=== PATIENT | female | born 1975 | race African-American/Black ===

== ENCOUNTER 2016-03-04 20:50 | Emergency (ER) | payer BC ==
[2016-03-04 21:01] VITALS: BP 142/88
--- NOTE | 2016-03-04 21:07 | ER Document Report ---
Addendum entered and electronically signed by ERIBERTO BERNSTEIN NP 03/04/16 21:36 : ED Medical Screen (RME) - General Chief Complaint: Cold Symptoms Stated Complaint: FEVER Mode of Arrival: Ambulatory Notes: I greeted and performed a rapid initial assessment of this patient. Comprehensive ED assessment and evaluation of the patient, analysis of test results and completion of the medical decision making process will be conducted by additional ED providers. TRAVEL OUTSIDE OF THE [place] IN LAST 30 DAYS: No - Related Data Allergies/Adverse Reactions: morphine [Morphine] Adverse Reaction (Verified 09/28/15 12:57) "feels funny" Original Note: ED Medical Screen (RME) - General Stated Complaint: FEVER Mode of Arrival: Ambulatory Information source: Patient Notes: Patient presents to the emergency department with fever for 2 days with chills weakness with body aches, sore throat, carvalho, diarrhea. Last took motrin 1630. tylenol at 1900. Pt called sally FISHER. told if she felt worse to come in. Pt received flu vaccine. Denies abdominal pain, reports little cough, feels SOB. TRAVEL OUTSIDE OF THE [place] IN LAST 30 DAYS: No - Related Data Allergies/Adverse Reactions: morphine [Morphine] Adverse Reaction (Verified 09/28/15 12:57) "feels funny" Past Medical History - Immunizations Hx Diphtheria, Pertussis, Tetanus Vaccination: Yes Physical Exam - Vital signs Vitals: Temp Pulse Resp BP Pulse Ox 98.3 F 94 20 142/88 H 99 03/04/16 21:00 03/04/16 21:00 03/04/16 21:00 03/04/16 21:00 03/04/16 21:00 Course - Vital Signs Vital signs: Temp Pulse Resp BP Pulse Ox 98.3 F 94 20 142/88 H 99 03/04/16 21:00 03/04/16 21:00 03/04/16 21:00 03/04/16 21:00 03/04/16 21:00
== END 2016-03-04 23:45 | disposition left against medical advice (07) ==
LOC: ER 20:50
DX: Z53.9 Procedure and treatment not carried out, unspecified reason (principal); R50.9 Fever, unspecified
CPT/HCPCS: 71020; 99281

== ENCOUNTER 2016-06-24 13:16 | Emergency (ER) | payer BC ==
--- NOTE | 2016-06-24 13:54 | ER Document Report ---
ED Medical Screen (RME) - General Chief Complaint: General Weakness Stated Complaint: ABDOMINAL PAIN Notes: Patient presents with a multitude of vague, nonspecific complaints including headache, abdominal pain, dizziness, generalized weakness. She is overall well in appearance on initial evaluation without any acute distress. Nothing improves or worsens her symptoms. She has not seen her primary care doctor regarding today's concerns. She is 2 weeks late for her last menstrual period. I have greeted and performed a rapid initial assessment of this patient. A comprehensive ED assessment and evaluation of the patient, analysis of test results and completion of medical decision making process will be conducted by an additional ED providers. TRAVEL OUTSIDE OF THE [place] IN LAST 30 DAYS: No - Related Data Allergies/Adverse Reactions: morphine [Morphine] Adverse Reaction (Verified 09/28/15 12:57) "feels funny" Past Medical History - Social History Chew tobacco use (# tins/day): No Frequency of alcohol use: None Drug Abuse: None Renal/ Medical History: Denies: Hx Peritoneal Dialysis Surgical Hx: Negative - Immunizations Hx Diphtheria, Pertussis, Tetanus Vaccination: Yes Physical Exam - Vital signs Vitals: Resp 16 06/24/16 13:45 Notes: PHYSICAL EXAMINATION: GENERAL: Well-appearing, well-nourished and in no acute distress. HEAD: Atraumatic, normocephalic. EYES: Pupils equal round and reactive to light, extraocular movements intact, sclera anicteric, conjunctiva are normal. ENT: nares patent, oropharynx clear without exudates. Moist mucous membranes. NECK: Normal range of motion, supple without lymphadenopathy LUNGS: Breath sounds clear to auscultation bilaterally and equal. No wheezes rales or rhonchi. HEART: Regular rate and rhythm without murmurs EXTREMITIES: Normal range of motion, no pitting or edema. No cyanosis. NEUROLOGICAL: No focal neurological deficits. Moves all extremities spontaneously and on command. PSYCH: Normal mood, normal affect. SKIN: Warm, Dry, normal turgor, no rashes or lesions noted. Course - Vital Signs Vital signs: Temp Pulse Resp BP Pulse Ox 16 06/24/16 13:45
[2016-06-24 14:19] LABS: ABSOLUTE BASOPHILS # (AUTO) 0.1 10^3/uL (0.0-0.2); ABSOLUTE EOSINOPHILS # (AUTO) 0.1 10^3/uL (0.0-0.6); ABSOLUTE LYMPHOCYTES (AUTO) 2.6 10^3/uL (0.5-4.7); ABSOLUTE MONOCYTES (AUTO) 0.5 10^3/uL (0.1-1.4); BASOPHILS % (AUTO) 0.7 % (0-2); EOSINOPHILS % (AUTO) 1.7 % (0-6); HEMATOCRIT 33.6 % (36.0-47.0); HEMOGLOBIN 10.4 g/dL (12.0-15.5); HGB HCT DIFFERENCE -2.4; LYMPHOCYTES % (AUTO) 31.5 % (13-45); MEAN CORPUSCULAR HEMOGLOBIN 20.9 pg (27.0-33.4); MEAN CORPUSCULAR HGB CONC 30.9 g/dL (32.0-36.0); MEAN CORPUSCULAR VOLUME 68 fl (80-97); MONOCYTES % (AUTO) 5.5 % (3-13); RED BLOOD COUNT 4.97 10^6/uL (3.72-5.28); RED CELL DISTRIBUTION WIDTH 18.5 % (11.5-14.0); SEGMENTED NEUTROPHILS % (AUTO) 60.6 % (42-78); WHITE BLOOD COUNT 8.2 10^3/uL (4.0-10.5)
[2016-06-24 14:37] LABS: ALANINE AMINOTRANSFERASE 15 U/L (9-52); ALBUMIN 3.9 g/dL (3.5-5.0); ALKALINE PHOSPHATASE 63 U/L (38-126); ANION GAP 13 (5-19); ASPARTATE AMINO TRANSFERASE 18 U/L (14-36); BILIRUBIN,DIRECT 0.2 mg/dL (0.0-0.4); BILIRUBIN,TOTAL 0.5 mg/dL (0.2-1.3); BLOOD UREA NITROGEN 11 mg/dL (7-20); CALCIUM 9.4 mg/dL (8.4-10.2); CARBON DIOXIDE 26 mmol/L (22-30); CHLORIDE 103 mmol/L (98-107); CREATININE RESULT 0.76 mg/dL (0.52-1.25); GLUCOSE 113 mg/dL (75-110); LIPASE 87.5 U/L (23-300); POTASSIUM 3.9 mmol/L (3.6-5.0); SODIUM 142.1 mmol/L (137-145); TOTAL PROTEIN 7.6 g/dL (6.3-8.2)
--- NOTE | 2016-06-24 14:48 | ER Document Report ---
ED General - General Chief Complaint: General Weakness Stated Complaint: ABDOMINAL PAIN Mode of Arrival: Ambulatory Information source: Patient Notes: Patient presents to the emergency department with complaints of left upper quadrant abdominal pain that started 3 days ago. Patient denies trauma, fever vomiting diarrhea. Patient reports that the pain started 3 days ago with some nausea. Patient denies past medical history of chronic abdominal issues such as IBS Crohn's diverticulitis. Patient denies pain with void or urinary frequency. Patient reports last bowel movement was yesterday and was normal. Patient reports that she also became dizzy today while she was walking. She reports the dizziness will go away when she laid down. She denies abdominal pain at this time. TRAVEL OUTSIDE OF THE [place] IN LAST 30 DAYS: No - HPI Onset: Other - 3 days Onset/Duration: Waxing and waning Quality of pain: Cramping Severity: Moderate Pain Level: 3 Associated symptoms: None Exacerbated by: Denies Relieved by: Denies Similar symptoms previously: Yes Recently seen / treated by doctor: No - Related Data Allergies/Adverse Reactions: morphine [Morphine] Adverse Reaction (Verified 09/28/15 12:57) "feels funny" Past Medical History - General Information source: Patient Last Menstrual Period: 05/05/16 - Social History Smoking Status: Never Smoker Chew tobacco use (# tins/day): No Frequency of alcohol use: None Drug Abuse: None 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 Lives with: Family Family History: Reviewed & Not Pertinent Patient has suicidal ideation: No Patient has homicidal ideation: No - Medical History Medical History: Other - Anemia Renal/ Medical History: Denies: Hx Peritoneal Dialysis Surgical Hx: Negative - Immunizations Hx Diphtheria, Pertussis, Tetanus Vaccination: Yes Hx Pneumococcal Vaccination: 02/20/10 Review of Systems - Review of Systems Notes: Review HPI for review of systems., All other systems negative Physical Exam - Vital signs Vitals: Temp Pulse Resp BP Pulse Ox 98.5 F 93 16 135/76 H 98 06/24/16 13:20 06/24/16 13:20 06/24/16 13:20 06/24/16 13:20 06/24/16 13:20 - Notes Notes: PHYSICAL EXAMINATION: GENERAL: Well-appearing and in no acute distress Nontoxic looking HEAD: Atraumatic, normocephalic. EYES: Pupils equal round , extraocular movements intact, sclera anicteric, conjunctiva are normal. ENT: nares patent, Moist mucous membranes. NECK: Normal range of motion, supple without lymphadenopathy LUNGS: CTAB and equal. No wheezes rales or rhonchi. HEART: Regular rate and rhythm without murmurs ABDOMEN: Soft, no tenderness. No guarding, no rebound denies pain with palpation EXTREMITIES: Normal range of motion, no pitting edema. No cyanosis. NEUROLOGICAL: Cranial nerves grossly intact. Normal sensory/motor exams. PSYCH: Normal mood, normal affect. SKIN: Warm, Dry, normal turgor, no rashes or lesions noted Course - Re-evaluation Re-evalutation: 06/24/16 15:20 Patient instructed on EKG KUB. Patient declines pain medication reports her abdomen is not hurting at this time. 06/24/16 17:23 Issue reports she's feeling much better no longer has abdominal pain, denies dizziness 06/24/16 18:14 Labs unremarkable patient reports she is no longer having any abdominal pain denies dizziness Monday to go home. Patient was instructed on all labs KUB. Patient was instructed on importance of follow-up with Dr. Billy for recheck on Monday. She verbalized understanding to all instructions. The patient presents with abdominal pain without signs of peritonitis or other life threatening or serious etiology. The patient appears stable for discharge and has been instructed to return immediately if the symptoms worsen in any way or in 8-12 hours if not improved for reevaluation. The patient has been instructed to return if the symptoms worsen or change in any way. - Vital Signs Vital signs: Temp Pulse Resp BP Pulse Ox 97.8 F 85 18 124/79 100 06/24/16 18:50 06/24/16 18:50 06/24/16 18:50 06/24/16 18:50 06/24/16 18:50 - Laboratory Result Diagrams: 06/24/16 14:10 06/24/16 14:10 Laboratory results interpreted by me: 06/24/16 06/24/16 06/24/16 14:10 14:10 17:28 Hgb 10.4 L Hct 33.6 L MCV 68 L MCH 20.9 L MCHC 30.9 L RDW 18.5 H Glucose 113 H Urine Blood SMALL H Urine Urobilinogen 2.0 H - Diagnostic Test Radiology reviewed: Image reviewed, Reports reviewed - Clinical Info Memos Diagnostic report text EXAM DESCRIPTION: KUB/ABDOMEN (SINGLE VIEW) COMPLETED DATE/TIME: 06/24/2016 4:01 pm REASON FOR STUDY: abd pain COMPARISON : None. NUMBER OF VIEWS: One view. TECHNIQUE: Supine radiographic image of the abdomen acquired. LIMITATIONS: None. FINDINGS: BOWEL GAS PATTERN: Normal bowel gas pattern. No dilated loops. CALCIFICATIONS: Calcification is seen the left side of the pelvis suggesting calcified uterine fibroid. SOFT TISSUES: No gross mass or suggestion of organomegaly. HARDWARE: None in the abdomen. BONES: No acute fracture. No worrisome bone lesions. OTHER: No other significant finding. TECHNICAL DOCUMENTATION: JOB ID: [id number]- All Rights Reserved RAD/KUB /ABDOMEN (SINGLE VIEW) IMPRESSION: NO RADIOGRAPHIC EVIDENCE FOR ACUTE ABDOMINAL DISEASE - EKG Interpretation by Wy EKG shows normal: Sinus rhythm Discharge - Discharge Clinical Impression: Abdominal pain, Elevated blood pressure reading, Dizziness Condition: Stable Disposition: HOME, SELF-CARE Instructions: Abdominal Pain ([facility]), Dizziness ([facility]) Additional Instructions: *You have been evaluated for abdominal pain, dizziness, elevated blood pressure reading, history of anemia *Follow up with Dr. Billy within 5 days. *Return to ED for worsening condition, changes, needs, return of abdominal pain *Return to ED if not better in 24 hours Monitor your blood pressure. Your blood pressure was elevated today. This may be because you were anxious, in pain or because you need medication. It is important to follow up with your primary care provider for full evaluation. Forms: Elevated Blood Pressure, Return to Work Referrals: JOSY BILLY MD [Primary Care Provider] - Follow up as needed
[2016-06-24 17:58] LABS: APPEARANCE,URINE SLIGHTLY-CLOUDY; BILIRUBIN,URINE NEGATIVE (NEGATIVE); GLUCOSE, URINE NEGATIVE (NEGATIVE); KETONES,URINE NEGATIVE (NEGATIVE); LEUKOCYTE ESTERASE,URINE NEGATIVE (NEGATIVE); NITRITE,URINE NEGATIVE (NEGATIVE); PROTEIN,URINE NEGATIVE (NEGATIVE); URINE SPECIFIC GRAVITY 1.027
[2016-06-24 18:51] VITALS: BP 124/79
--- NOTE | 2016-06-24 19:08 | EKG REPORT ---
SEVERITY:- DEFECTIVE ECG - SINUS RHYTHM DEFECTIVE LEAD III : Confirmed by: Severiano Burks MD 24-Jun-2016 19:08:16
== END 2016-06-24 18:50 | disposition home or self-care (01) ==
LOC: ER 13:16
DX: R10.9 Unspecified abdominal pain (principal); R42 Dizziness and giddiness; R03.0 Elevated blood-pressure reading, without diagnosis of hypertension; R53.1 Weakness; Z88.6 Allergy status to analgesic agent
CPT/HCPCS: 36415; 74000; 80053; 81001; 83690; 84703; 85025; 93005; 93010; 99285

== ENCOUNTER → 2016-08-15 | Outpatient (CLI) | payer BC ==
[~2016-08-15] MED LIST: ACETAMINOPHEN 325 MG TABLET ONE; DIPHENHYDRAMINE HCL 25 MG CAPSULE ONE
--- NOTE | 2016-08-15 17:02 | RADIOLOGY REPORT (SQ) ---
EXAM DESCRIPTION: HYSTEROSALPINGOGRAM; HYSTERO CATH/INJECTION COMPLETED DATE/TIME: 08/15/2016 3:49 pm REASON FOR STUDY: INFERTILITY COMPARISON: None. PROCEDURE: PRE-PROCEDURE: Procedure was explained to the patient. She was told to expect cramping du ring the procedure, and possible spotting post procedure. PROCEDURE: The cervix was prepped in sterile fashion. Under direct visual inspection, the cervix was cannulated with the hysterosalpingogram catheter and contrast injected. TECHNIQUE: Temporal fluoroscopic images acquired during the procedure stored to PACS. FLUOROSCOPY TIME: Less than 3 seconds total fluoro time 25 digital radiographic images saved to PACS. LIMITATIONS: None. FINDINGS: UTERUS: Calcified uterine fibroid along the leftward lower uterine segment about 1.5 cm in diameter. There is flattening of the leftward uterine fundus endometrial canal related to a fibroid . This distorts the infundibular segment of the left proximal fallopian tube. No synechiae. No wendy ypoid filling defects in the endometrial canal. RIGHT ADNEXA: Normal size fallopian tube. Free spill of contrast into the peritoneal cavity. LEFT ADNEXA: Normal size fallopian tube. Free spill of contrast into the peritoneal cavity. POST PROCEDURE: The patient tolerated the procedure with no adverse effects. IMPRESSION: Patent fallopian tubes bilaterally. Leftward uterine fibroids. COMMENT: Quality ID 145: Final reports for procedures using fluoroscopy that document radiation exp osure indices, or exposure time and number of fluorographic images (if radiation exposure indices are not available) TECHNICAL DOCUMENTATION: JOB ID: [id number] [employer]- All Rights Reserved
== END ==
LOC: RAD 14:24
PROVIDERS: ATTEND Obstetrics & Gynecology Reproductive Endocrinology
DX: N92.5 Other specified irregular menstruation (principal)
CPT/HCPCS: 58340; 74740

== ENCOUNTER → 2016-08-28 | Outpatient (CLI) | payer BC | LOC: LAB 08:38 | PROVIDERS: ATTEND Obstetrics & Gynecology Reproductive Endocrinology | DX: N92.5 Other specified irregular menstruation (principal) | CPT/HCPCS: 36415; 83036; 83516; 84443 ==

== ENCOUNTER 2016-11-21 11:16 | Emergency (ER) | payer BC ==
--- NOTE | 2016-11-21 12:17 | ER Document Report ---
ED General - General Chief Complaint: Pain All Over Stated Complaint: FEVER Time Seen by Provider: 11/21/16 12:10 Mode of Arrival: Ambulatory Information source: Patient TRAVEL OUTSIDE OF THE [place] IN LAST 30 DAYS: No - HPI Onset: Last week Onset/Duration: Gradual Quality of pain: Achy, Dull Associated symptoms: Body/muscle aches, Diarrhea, Fever - INTERMITTENT, Headache , Nausea, Sinus pain/drainage, Sore throat. denies: Chest pain, Nonproductive cough, Productive cough, Vomiting Exacerbated by: Movement Relieved by: Remaining still Similar symptoms previously: No Recently seen / treated by doctor: No - Related Data Allergies/Adverse Reactions: morphine [Morphine] Adverse Reaction (Verified 11/21/16 11:19) "feels funny" Past Medical History - General Information source: Patient - Social History Smoking Status: Never Smoker Chew tobacco use (# tins/day): No Frequency of alcohol use: None Drug Abuse: None Lives with: Spouse/Significant other Family History: Reviewed & Not Pertinent Patient has suicidal ideation: No - Past Medical History Cardiac Medical History: Reports: None Pulmonary Medical History: Reports: None EENT Medical History: Reports: None Neurological Medical History: Reports: None Endocrine Medical History: Reports: None Renal/ Medical History: Reports: None. Denies: Hx Peritoneal Dialysis Malignancy Medical History: Reports: None GI Medical History: Reports: None Musculoskeltal Medical History: Reports None Psychiatric Medical History: Reports: None Surgical Hx: Negative - Immunizations Hx Diphtheria, Pertussis, Tetanus Vaccination: Yes Hx Pneumococcal Vaccination: 02/20/10 Review of Systems - Review of Systems Constitutional: See HPI EENT: See HPI, Sinus pressure, Throat pain Cardiovascular: No symptoms reported Respiratory: No symptoms reported. denies: Cough, Hurts to breathe, Short of breath Gastrointestinal: See HPI Genitourinary: No symptoms reported Female Genitourinary: denies: Musculoskeletal: See HPI Skin: No symptoms reported Neurological/Psychological: Headaches Physical Exam - Vital signs Vitals: Temp Pulse Resp BP Pulse Ox 99.2 F 94 16 149/82 H 99 11/21/16 11:20 11/21/16 11:20 11/21/16 11:20 11/21/16 11:20 11/21/16 11:20 Interpretation: Hypertensive. No: Tachycardic, Tachypneic, Febrile - General General appearance: Appears well, Alert In distress: None - HEENT Head: Normocephalic Eyes: Normal Conjunctiva: Normal Ears: Normal Sinus: Other - MILDLY TENDER MAXILLAE Nasal: Normal Mouth/Lips: Normal Mucous membranes: Normal Pharynx: Normal Neck: Normal - Respiratory Respiratory status: No respiratory distress Breath sounds: Normal - Cardiovascular Rhythm: Regular - Abdominal Inspection: Obese - Extremities General upper extremity: Normal inspection General lower extremity: Normal inspection - Neurological Neuro grossly intact: Yes Cognition: Normal Orientation: AAOx4 - Psychological Associated symptoms: Normal affect, Normal mood - Skin Skin Temperature: Warm Skin Moisture: Dry Skin Color: Normal Skin Turgor: Elastic Course - Vital Signs Vital signs: Temp Pulse Resp BP Pulse Ox 99.2 F 94 16 149/82 H 99 11/21/16 11:20 11/21/16 11:20 11/21/16 11:20 11/21/16 11:20 11/21/16 11:20 - Laboratory Result Diagrams: 11/21/16 12:55 11/21/16 12:55 Laboratory results interpreted by me: 11/21/16 11/21/16 11/21/16 12:55 12:55 13:00 Hgb 10.1 L Hct 31.0 L MCV 65 L MCH 21.0 L RDW 19.6 H ESR 47 H Glucose 74 L Urine Blood SMALL H Urine Urobilinogen 2.0 H Discharge - Discharge Clinical Impression: Viral illness Condition: Stable Disposition: HOME, SELF-CARE Instructions: Viral Syndrome ([facility]), Acetaminophen, Oral Narcotic Medication ( [facility]) Additional Instructions: REST, DRINK PLENTY OF FLUIDS. TAKE IBUPROFEN NEEDED FOR PAIN, OR HYDROCODONE IF NEEDED FOR MORE SEVERE PAIN. FOLLOW UP WITH YOUR PRIMARY CARE PROVIDER OR RETURN TO E.R. IF NOT IMPROVING IN 2-3 DAYS, OR SOONER IF YOU GET WORSE ANY TIME. Prescriptions: Hydrocodone/Acetaminophen [[place] 5-325 mg Tablet] 0.5 tab PO Q4HP PRN #7 tablet PRN Reason: For Pain Referrals: JOSY BILLY MD [Primary Care Provider] - Follow up as needed
[2016-11-21 13:16] LABS: BASOPHILS % (AUTO) 0.5 % (0-2); EOSINOPHILS % (AUTO) 1.8 % (0-6); HEMOGLOBIN 10.1 g/dL (12.0-15.5)
[2016-11-21 13:21] LABS: APPEARANCE,URINE CLEAR; BILIRUBIN,URINE NEGATIVE (NEGATIVE); GLUCOSE, URINE NEGATIVE (NEGATIVE); KETONES,URINE NEGATIVE (NEGATIVE); LEUKOCYTE ESTERASE,URINE NEGATIVE (NEGATIVE); NITRITE,URINE NEGATIVE (NEGATIVE); PROTEIN,URINE NEGATIVE (NEGATIVE); URINE SPECIFIC GRAVITY 1.013
[2016-11-21 13:26] LABS: ABSOLUTE EOSINOPHILS # (AUTO) 0.2 10^3/uL (0.0-0.6); ABSOLUTE LYMPHOCYTES (AUTO) 2.8 10^3/uL (0.5-4.7); ABSOLUTE MONOCYTES (AUTO) 0.6 10^3/uL (0.1-1.4); HGB HCT DIFFERENCE -0.7; LYMPHOCYTES % (AUTO) 32.2 % (13-45); MEAN CORPUSCULAR HGB CONC 32.5 g/dL (32.0-36.0); MEAN CORPUSCULAR VOLUME 65 fl (80-97); MONOCYTES % (AUTO) 6.9 % (3-13); RED BLOOD COUNT 4.79 10^6/uL (3.72-5.28); RED CELL DISTRIBUTION WIDTH 19.6 % (11.5-14.0); SEGMENTED NEUTROPHILS % (AUTO) 58.6 % (42-78); WHITE BLOOD COUNT 8.6 10^3/uL (4.0-10.5)
--- NOTE | 2016-11-21 13:29 | RADIOLOGY REPORT (SQ) ---
EXAM DESCRIPTION: CT FACIAL AREA WITHOUT COMPLETED DATE/TIME: 11/21/2016 1:21 pm REASON FOR STUDY: SINUS PAIN, FEVER COMPARISON: None. TECHNIQUE: Noncontrast scanning through the paranasal sinuses using bone algorithm. Reconstructed MPR images reviewed. All images stored on PACS. All CT scanners at this facility use dose modulation, iterative reconstruction, and/or weight based d osing when appropriate to reduce radiation dose to as low as reasonably achievable (ALARA). [facility]: Dose Right [facility]: CareDose [facility]: Dose Right [facility]: Teradose 4D [facility]: [employer] RADIATION DOSE: Up-to-date CT equipment and radiation dose reduction techniques were employed. CTDIv ol: 30.4 mGy. DLP: 559 mGy-cm. mGy. LIMITATIONS: None. FINDINGS: SINUSES: Clear, no masses, mucosal thickening or fluid. No erosions. NASAL CAVITY: Midline nasal septum. BONES: Normal mineralization. No fracture or bone lesion. ORBITS: Intact, symmetric globes. No retroorbital mass. TMJS: Normal. MASTOIDS: Clear. IACs symmetric, grossly normal. INFERIOR BRAIN: Limited view. No acute findings. OTHER: No other significant finding. IMPRESSION: NO EVIDENCE OF ACUTE OR CHRONIC SINUSITIS. TECHNICAL DOCUMENTATION: JOB ID: [id number] Quality ID # [id number]: Final reports with documentation of one or more dose reduction techniques (e.g., Au tomated exposure control, adjustment of the mA and/or kV according to patient size, use of iterative reconstruction technique) 2010 [employer]- All Rights Reserved
[2016-11-21 13:34] LABS: ALANINE AMINOTRANSFERASE 26 U/L (9-52); ALKALINE PHOSPHATASE 62 U/L (38-126); ANION GAP 10 (5-19); ASPARTATE AMINO TRANSFERASE 15 U/L (14-36); BILIRUBIN,DIRECT 0.3 mg/dL (0.0-0.4); BILIRUBIN,TOTAL 0.4 mg/dL (0.2-1.3); BLOOD UREA NITROGEN 13 mg/dL (7-20); CALCIUM 9.6 mg/dL (8.4-10.2); CARBON DIOXIDE 27 mmol/L (22-30); CHLORIDE 104 mmol/L (98-107); CREATININE RESULT 0.78 mg/dL (0.52-1.25); GLUCOSE 74 mg/dL (75-110); POTASSIUM 4.1 mmol/L (3.6-5.0); SODIUM 140.5 mmol/L (137-145); TOTAL PROTEIN 7.6 g/dL (6.3-8.2)
[2016-11-21 13:48] LABS: ERYTHROCYTE SEDIMENTATION RATE 47 mm/hr (0-20)
[2016-11-21 13:58] LABS: ANISOCYTOSIS 2+; HYPOCHROMASIA 1+; MICROCYTOSIS 3+; POLYCHROMASIA SLIGHT
[2016-11-21 14:36] VITALS: BP 133/73
== END 2016-11-21 14:36 | disposition home or self-care (01) ==
LOC: ER 11:16
DX: B34.9 Viral infection, unspecified (principal); M79.1 Myalgia; R19.7 Diarrhea, unspecified; R50.9 Fever, unspecified; R51 Headache; R11.0 Nausea; J02.9 Acute pharyngitis, unspecified; J34.89 Other specified disorders of nose and nasal sinuses
CPT/HCPCS: 36415; 70486; 80053; 81001; 85025; 85652; 99284

== ENCOUNTER → 2017-03-05 | Outpatient (CLI) | payer BC | LOC: LAB 15:48 | PROVIDERS: ATTEND Internal Medicine | DX: Z32.02 Encounter for pregnancy test, result negative (principal) | CPT/HCPCS: 36415; 84702; 84703 ==

== ENCOUNTER 2017-08-09 16:42 | Emergency (ER) | payer SELFPAY ==
[2017-08-09] MEDS ORDERED: HYDROMORPHONE HCL INJ/PF 2 MG/ML AMPULE IV ONE (17:02)
--- NOTE | 2017-08-09 17:03 | ER Document Report ---
ED Medical Screen (RME) - General Chief Complaint: Flank Pain Stated Complaint: SIDE PAIN, DIARRHEA Time Seen by Provider: 08/09/17 16:58 Notes: The patient is a 41-year-old female who presents with a few days of right flank pain is worse when she takes deep breaths or moves. She is also having some hematuria. Pain is not worse with palpation and she thinks it is deeper. Pt also with hematuria, but she recently started her period. PE: Uncomfortable. No CVA tenderness. Lungs CTAB. RRR. I have greeted and performed a rapid initial assessment of this patient. A comprehensive ED assessment and evaluation of the patient, analysis of test results and completion of the medical decision making process will be conducted by additional ED providers. TRAVEL OUTSIDE OF THE [place] IN LAST 30 DAYS: No - Related Data Allergies/Adverse Reactions: morphine [Morphine] Adverse Reaction (Verified 08/09/17 17:01) "feels funny" Past Medical History - Social History Chew tobacco use (# tins/day): No Frequency of alcohol use: None Drug Abuse: None Renal/ Medical History: Denies: Hx Peritoneal Dialysis - Immunizations Hx Diphtheria, Pertussis, Tetanus Vaccination: Yes Physical Exam - Vital signs Vitals: Temp Pulse Resp BP Pulse Ox 98.5 F 93 16 127/78 H 100 08/09/17 16:49 08/09/17 16:49 08/09/17 16:49 08/09/17 16:49 08/09/17 16:49 Course - Vital Signs Vital signs: Temp Pulse Resp BP Pulse Ox 98.5 F 93 16 127/78 H 100 08/09/17 16:49 08/09/17 16:49 08/09/17 16:49 08/09/17 16:49 08/09/17 16:49 Doctor's Discharge - Discharge Referrals: JOSY BILLY MD [Primary Care Provider] - Follow up as needed
[2017-08-09 18:11] LABS: APPEARANCE,URINE SLIGHTLY-CLOUDY; BILIRUBIN,URINE NEGATIVE (NEGATIVE); COLOR,URINE YELLOW; GLUCOSE, URINE NEGATIVE (NEGATIVE); KETONES,URINE NEGATIVE (NEGATIVE); LEUKOCYTE ESTERASE,URINE NEGATIVE (NEGATIVE); NITRITE,URINE NEGATIVE (NEGATIVE); PROTEIN,URINE 30 mg/dL (NEGATIVE); URINE SPECIFIC GRAVITY 1.027
[2017-08-09 18:20] LABS: ABSOLUTE EOSINOPHILS # (AUTO) 0.2 10^3/uL (0.0-0.6); ABSOLUTE LYMPHOCYTES (AUTO) 3.1 10^3/uL (0.5-4.7); ABSOLUTE MONOCYTES (AUTO) 0.8 10^3/uL (0.1-1.4); ABSOLUTE NEUT (AUTO) 6.3 10^3/uL (1.7-8.2); BASOPHILS % (AUTO) 0.5 % (0-2); EOSINOPHILS % (AUTO) 1.7 % (0-6); HEMATOCRIT 32.2 % (36.0-47.0); HEMOGLOBIN 10.4 g/dL (12.0-15.5); LYMPHOCYTES % (AUTO) 29.5 % (13-45); MEAN CORPUSCULAR HEMOGLOBIN 21.6 pg (27.0-33.4); MEAN CORPUSCULAR HGB CONC 32.4 g/dL (32.0-36.0); MEAN CORPUSCULAR VOLUME 67 fl (80-97); MONOCYTES % (AUTO) 7.4 % (3-13); PLATELET COUNT 320 10^3/uL (150-450); RED BLOOD COUNT 4.83 10^6/uL (3.72-5.28); RED CELL DISTRIBUTION WIDTH 19.5 % (11.5-14.0); SEGMENTED NEUTROPHILS % (AUTO) 60.9 % (42-78); TOTAL CELLS COUNTED % (AUTO) 100 %; WHITE BLOOD COUNT 10.4 10^3/uL (4.0-10.5)
[2017-08-09 18:27] LABS: ALANINE AMINOTRANSFERASE 20 U/L (9-52); ALBUMIN 4.2 g/dL (3.5-5.0); ALKALINE PHOSPHATASE 57 U/L (38-126); ANION GAP 11 (5-19); ASPARTATE AMINO TRANSFERASE 16 U/L (14-36); BILIRUBIN,DIRECT 0.3 mg/dL (0.0-0.4); BILIRUBIN,TOTAL 0.4 mg/dL (0.2-1.3); BLOOD UREA NITROGEN 11 mg/dL (7-20); CARBON DIOXIDE 25 mmol/L (22-30); CHLORIDE 106 mmol/L (98-107); GLUCOSE 89 mg/dL (75-110); LIPASE 94.1 U/L (23-300); POTASSIUM 4.4 mmol/L (3.6-5.0); SODIUM 142.1 mmol/L (137-145); TOTAL PROTEIN 7.9 g/dL (6.3-8.2)
--- NOTE | 2017-08-09 18:52 | RADIOLOGY REPORT (SQ) ---
EXAM DESCRIPTION: CT LTD RENAL STONE PROTOCOL ON COMPLETED DATE/TIME: 08/09/2017 6:34 pm REASON FOR STUDY: right flank pain, hematuria COMPARISON: None. TECHNIQUE: CT scan of the abdomen and pelvis performed without intravenous or oral contrast. Images reviewed with lung, soft tissue, and bone windows. Reconstructed coronal and sagittal MPR images revi ewed. All images stored on PACS. All CT scanners at this facility use dose modulation, iterative reconstruction, and/or weight based d osing when appropriate to reduce radiation dose to as low as reasonably achievable (ALARA). [facility]: Dose Right [facility]: CareDose [facility]: Dose Right [facility]: Teradose 4D [facility]: Smart [employer] RADIATION DOSE: CT Rad equipment meets quality standard of care and radiation dose reduction techniq ues were employed. CTDIvol: 27.0 mGy. DLP: 1528 mGy-cm.mGy. LIMITATIONS: None. FINDINGS: LOWER CHEST: Patchy airspace densities are identified which could represent atelectatic ch anges or minimal infiltrates. NON-CONTRASTED LIVER, SPLEEN, ADRENALS: Evaluation limited by lack of IV contrast. No identified sign ificant masses. PANCREAS: No masses. No peripancreatic inflammatory changes. GALLBLADDER: No identified stones by CT criteria. No inflammatory changes to suggest cholecystitis. RIGHT KIDNEY AND URETER: No suspicious masses. Assessment limited by lack of IV contrast. No signif icant calcifications. No hydronephrosis or hydroureter. LEFT KIDNEY AND URETER: No suspicious masses. Assessment limited by lack of IV contrast. No signifi cant calcifications. No hydronephrosis or hydroureter. AORTA AND RETROPERITONEUM: No aneurysm. No retroperitoneal masses or adenopathy. BOWEL AND PERITONEAL CAVITY: No obvious masses or inflammatory changes. No free fluid. APPENDIX: Not identified PELVIS, BLADDER, AND ABDOMINAL WALL:A complex predominately cystic mass containing calcifications is identified in the right adnexal region measuring 5.2 x 4.0 cm in diameters most consistent with a ezra moid. A complex mixed density mass is identified in the left adnexal region measuring 5.7 x 4.1 cm i n diameters which also is most consistent with a dermoid. There is enlargement of the uterus with lo bulated contours in uterine calcifications most consistent with an enlarged fibroid uterus. Pelvic u ltrasound or MRI of may be of value for further evaluation. BONES: No significant findings. OTHER: No other significant finding. IMPRESSION: Findings most consistent with bilateral adnexal dermoids as noted above. There is enlar gement of the uterus with a lobulated contours and uterine calcifications most consistent with an enl arged fibroid uterus. Pelvic ultrasound or MRI may be of value for further evaluation. Other findin gs as noted above COMMENT: Quality ID # 436: Final reports with documentation of one or more dose reduction techniques (e.g., Automated exposure control, adjustment of the mA and/or kV according to patient size, use of iterative reconstruction technique) TECHNICAL DOCUMENTATION: JOB ID: [id number] [employer]- All Rights Reserved Reading location - IP/workstation name: [email or web address]
--- NOTE | 2017-08-09 20:48 | RADIOLOGY REPORT (SQ) ---
EXAM DESCRIPTION: U/S NON OB PEL TV W/DOPPLER COMPLETED DATE/TIME: 08/09/2017 8:27 pm REASON FOR STUDY: further eval of dermoid cyst on ct COMPARISON: None. TECHNIQUE: Dynamic and static grayscale images acquired of the pelvis via transvaginal approach and recorded on PACS. Additional selected color Doppler and spectral images recorded. LIMITATIONS: Body habitus. FINDINGS: Technically limited study. Uterus measures 11.8 by 8.3 x 8.8 cm. Several fibroids, the l argest 3.9 cm. Endometrial stripe 5.5 mm. Ovaries are not visualized. No free fluid. IMPRESSION: Technically limited study. Pelvic cystic lesion not visualized. TECHNICAL DOCUMENTATION: JOB ID: [id number] [employer]- All Rights Reserved Rev Reading location - IP/workstation name: [email or web address]
[2017-08-09] MEDS ORDERED: ONDANSETRON 4 MG TAB.RAPDIS PO ONE (20:51)
[2017-08-09] MEDS ORDERED: ONDANSETRON ODT 4 MG TAB (6 TAB/ER DISP) PO PRN (22:10)
--- NOTE | 2017-08-09 22:10 | ER Document Report ---
ED General - General Chief Complaint: Flank Pain Stated Complaint: SIDE PAIN, DIARRHEA Time Seen by Provider: 08/09/17 16:58 TRAVEL OUTSIDE OF THE [place] IN LAST 30 DAYS: No - HPI Patient complains to provider of: Right flank pain Notes: Patient coming in for evaluation of right flank pain. Ongoing for greater than 24 hours. Patient states worse with taking a deep breath and some slight movement however is not tender to palpation. Patient states also having hematuria however may be beginning her cycle. Denies any trauma to the area denies fevers chills patient states that she is currently slightly nauseous however did receive Dilaudid in triage area. Patient states her pain has been relieved at this time patient is also very somnolent stating that she is sleepy after the medication. Denies history kidney stones denies any vaginal discharge or other abdominal pain denies any chest pain. No recent travel no shortness of breath - Related Data Allergies/Adverse Reactions: morphine [Morphine] Adverse Reaction (Verified 08/09/17 17:01) "feels funny" Past Medical History - Social History Smoking Status: Never Smoker Chew tobacco use (# tins/day): No Frequency of alcohol use: None Drug Abuse: None Family History: Reviewed & Not Pertinent Patient has suicidal ideation: No Patient has homicidal ideation: No Renal/ Medical History: Denies: Hx Peritoneal Dialysis - Immunizations Hx Diphtheria, Pertussis, Tetanus Vaccination: Yes Hx Pneumococcal Vaccination: 02/20/10 Review of Systems - Review of Systems Constitutional: No symptoms reported EENT: No symptoms reported Cardiovascular: No symptoms reported Respiratory: No symptoms reported Gastrointestinal: No symptoms reported Genitourinary: Flank pain Female Genitourinary: No symptoms reported Musculoskeletal: No symptoms reported Skin: No symptoms reported Hematologic/Lymphatic: No symptoms reported Neurological/Psychological: No symptoms reported -: Yes All other systems reviewed and negative Physical Exam - Vital signs Vitals: Temp Pulse Resp BP Pulse Ox 98.5 F 93 16 127/78 H 100 08/09/17 16:49 08/09/17 16:49 08/09/17 16:49 08/09/17 16:49 08/09/17 16:49 Interpretation: Normal - General General appearance: Appears well, Alert - HEENT Head: Normocephalic, Atraumatic Eyes: Normal Pupils: PERRL - Respiratory Respiratory status: No respiratory distress Chest status: Nontender Breath sounds: Normal Chest palpation: Normal - Cardiovascular Rhythm: Regular Heart sounds: Normal auscultation Murmur: No - Abdominal Inspection: Normal, Morbidly Obese Distension: No distension Bowel sounds: Normal Tenderness: Nontender Organomegaly: No organomegaly - Back Back: Normal, Nontender - Extremities General upper extremity: Normal inspection, Nontender, Normal color, Normal ROM , Normal temperature General lower extremity: Normal inspection, Nontender, Normal color, Normal ROM , Normal temperature, Normal weight bearing. No: Bart's sign - Neurological Neuro grossly intact: Yes Cognition: Normal Orientation: AAOx4 [place] Coma Scale Eye Opening: Spontaneous [place] Coma Scale Verbal: Oriented [place] Coma Scale Motor: Obeys Commands [place] Coma Scale Total: 15 Speech: Normal Motor strength normal: LUE, RUE, LLE, RLE Sensory: Normal - Psychological Associated symptoms: Normal affect, Normal mood - Skin Skin Temperature: Warm Skin Moisture: Dry Skin Color: Normal Course - Re-evaluation Re-evalutation: 08/09/17 23:11 CAT scan not revealing signs of stones but does reveal some dermoid cyst. Ultrasound was performed to further evaluate his dermoid cyst no critical etiology seen this time. Patient was encouraged to follow-up with her [facility] for further evaluation of the dermoid cyst seen the patient presents with flank pain without signs of peritonitis or other life-threatening or serious etiology. The patient appears stable for discharge and has been instructed to return immediately if the symptoms worsen in any way, or in 8-12hr if not improved for re-evaluation. The patient has been instructed to return if the symptoms worsen or change in any way. 08/09/17 23:12 - Vital Signs Vital signs: Temp Pulse Resp BP Pulse Ox 98.2 F 86 18 128/74 H 97 08/09/17 22:31 08/09/17 22:31 08/09/17 22:31 08/09/17 22:31 08/09/17 22:31 - Laboratory Result Diagrams: 08/09/17 17:50 08/09/17 17:50 Laboratory results interpreted by me: 08/09/17 08/09/17 17:23 17:50 Hgb 10.4 L Hct 32.2 L MCV 67 L MCH 21.6 L RDW 19.5 H Urine Protein 30 H Urine Blood LARGE H Urine Urobilinogen 4.0 H Urine Ascorbic Acid 40 H Discharge - Discharge Clinical Impression: Flank pain, Dermoid cyst, Nausea Fibroid uterus Qualifiers: Uterine leiomyoma location: unspecified location Qualified Code(s): D25.9 - Leiomyoma of uterus, unspecified Condition: Good Disposition: HOME, SELF-CARE Instructions: Flank Pain ([facility]), Nausea or Vomiting, Nonspecific ([facility]), Oral Narcotic Medication ([facility]) Additional Instructions: Laboratory studies today do not show any significant pathology your CT scan and ultrasound do show a dermoid cyst. This might be the possible etiology of the pain is everything else looks to be negative. I will highly recommend she follow-up with your [facility] for further evaluation. Return to ER symptoms worsen. Ultram prescribed is a narcotic pain medication take this for severe pain. I also recommend taking Motrin 600 mg along with Tylenol 650 mg to 1000 mg together 3 times a day for pain control Prescriptions: Ondansetron [Zofran Odt] 4 mg PO Q6 PRN #30 tab.rapdis PRN Reason: For Nausea/Vomiting Tramadol HCl [Ultram 50 mg Tablet] 50 mg PO ASDIR PRN #20 tablet PRN Reason: Referrals: JOSY BILLY MD [Primary Care Provider] - Follow up as needed
[2017-08-09 22:32] VITALS: BP 128/74
== END 2017-08-09 22:32 | disposition home or self-care (01) ==
LOC: ER 16:42
DX: D36.9 Benign neoplasm, unspecified site (principal); D25.9 Leiomyoma of uterus, unspecified; R10.9 Unspecified abdominal pain; R11.0 Nausea
CPT/HCPCS: 99284; 36415; 83690; 85025; 81025; 80053; 81001; 76830; 93976; 76380; S0119; J1170

== ENCOUNTER 2017-11-05 17:20 | Emergency (ER) | payer SELFPAY ==
[2017-11-05] MEDS ORDERED: IPRATROPIUM/ALBUTEROL 0.5-2.5 MG/3 ML AMPUL NEB ONE (19:12)
--- NOTE | 2017-11-05 20:17 | RADIOLOGY REPORT (SQ) ---
EXAM DESCRIPTION: CHEST 2 VIEWS COMPLETED DATE/TIME: 11/05/2017 8:02 pm REASON FOR STUDY: chest pain, fever, cough COMPARISON: 03/04/2016 EXAM PARAMETERS: NUMBER OF VIEWS: two views TECHNIQUE: Digital Frontal and Lateral radiographic views of the chest acquired. RADIATION DOSE: NA LIMITATIONS: none FINDINGS: LUNGS AND PLEURA: No opacities, masses or pneumothorax. No pleural effusion. MEDIASTINUM AND HILAR STRUCTURES: No masses or contour abnormalities. HEART AND VASCULAR STRUCTURES: Heart normal size. No evidence for failure. BONES: No acute findings. HARDWARE: None in the chest. OTHER: No other significant finding. IMPRESSION: NO ACUTE RADIOGRAPHIC FINDING IN THE CHEST. TECHNICAL DOCUMENTATION: JOB ID: [id number] [email or web address] All Rights Reserved Reading location - IP/workstation name: [email or web address]
[2017-11-05] MEDS ORDERED: ALBUTEROL SULFATE HFA (90 MCG/PUFF) 8 GM MDI (1 MDI/ER DISP) IH ONE ×2 (20:49→20:56)
--- NOTE | 2017-11-05 20:49 | ER Document Report ---
HPI - HPI Pain Level: Denies Notes: Patient is a 42-year-old female who presents to the emergency department with complaint of cough and fever. Patient reports she has a history of bronchitis and she feels that is what is causing her symptoms. Patient denies any chest pain. Patient denies any nausea, vomiting or diarrhea. - CONSTITUTIONAL Constitutional: REPORTS: Fever - up to 103.4 - EENT EENT: REPORTS: Sore Throat, Ear Pain - right - NEURO Neurology: REPORTS: Headache - RESPIRATORY Respiratory: REPORTS: Coughing - REPRODUCTIVE Reproductive: DENIES: : Past Medical History - General Information source: Patient - Social History Smoking Status: Never Smoker Frequency of alcohol use: None Drug Abuse: None Family History: Reviewed & Not Pertinent Patient has suicidal ideation: No Patient has homicidal ideation: No Pulmonary Medical History: Reports: Hx Bronchitis Renal/ Medical History: Denies: Hx Peritoneal Dialysis Surgical Hx: Negative - Immunizations Immunizations up to date: Yes Hx Diphtheria, Pertussis, Tetanus Vaccination: Yes Hx Pneumococcal Vaccination: 02/20/10 Vertical Provider Document - CONSTITUTIONAL Notes: PHYSICAL EXAMINATION: GENERAL: Well-appearing, well-nourished and in no acute distress. HEAD: Atraumatic, normocephalic. EYES: Pupils equal round extraocular movements intact, conjunctiva are normal. ENT: Nares patent NECK: Normal range of motion LUNGS: No respiratory distress, mild expiratory wheezing noted bilaterally. Musculoskeletal: Normal range of motion NEUROLOGICAL: Normal speech, normal gait. PSYCH: Normal mood, normal affect. SKIN: Warm, Dry, normal turgor, no rashes or lesions noted. - INFECTION CONTROL TRAVEL OUTSIDE OF THE [place] IN LAST 30 DAYS: No Course - Re-evaluation Re-evalutation: Patient's examination is consistent with acute bronchitis. Chest x-ray is negative for any acute findings. Patient reports resolved symptoms after administration of DuoNeb. - Vital Signs Vital signs: Temp Pulse Resp BP Pulse Ox 99.3 F 102 H 20 136/80 H 97 11/05/17 18:03 11/05/17 18:03 11/05/17 18:03 11/05/17 18:03 11/05/17 18:03 Discharge - Discharge Clinical Impression: Bronchitis Condition: Stable Disposition: HOME, SELF-CARE Additional Instructions: Bronchitis with Bronchospasm (Wheezing) You have bronchitis with bronchospasm (wheezing). Sometimes people develop wheezing with a chest cold. This occurs either because of an underlying tendency toward asthma or because the virus itself irritates the bronchial tubes. This irritation causes cough, shortness of breath, and wheezing. Emergency treatment of bronchospasm may include adrenaline shots or bronchodilator aerosol. You may feel lightheaded and have a rapid pulse for an hour or two. Rest and get plenty of fluids. At home, we'll treat you with a bronchodilator inhaler. Corticosteroids may be required for some patients. Until you recover, avoid chemical fumes, dusts, pollens, and exercising in very cold or dry air. If you smoke, stop now! Most cases of bronchitis get better without antibiotics. We prescribe antibiotics when we believe bacteria are damaging your airways, or if there's high risk the bronchitis will worsen into pneumonia. Increase your fluid intake. A cool mist humidifier may make your lungs more comfortable. An expectorant (cough medicine that loosens phlegm) can help. Repeated episodes of bronchitis and bronchospasm may result in lung damage -- for example, chronic bronchitis, recurrent pneumonias, or emphysema. If you develop a fever, increased wheezing, chest pain, or severe shortness of breath, you should contact the doctor immediately. Please use medication as prescribed. Take Tylenol every 4 hours for your fever. Please follow-up with your primary care doctor in the next 3-5 days, sooner if you are not improving. Prescriptions: Benzonatate [Tessalon Perles 100 mg Capsule] 100 mg PO Q8HP PRN #40 capsule PRN Reason: Referrals: JOSY BILLY MD [Primary Care Provider] - Follow up as needed
[2017-11-05] MEDS ORDERED: ACETAMINOPHEN 325 MG TABLET PO ONE (20:50)
[2017-11-05 20:52] VITALS: BP 140/79
[2017-11-05] MEDS ORDERED: ACETAMINOPHEN 325 MG TABLET ONE (20:56)
== END 2017-11-05 21:05 | disposition home or self-care (01) ==
LOC: ER 17:20
DX: J40 Bronchitis, not specified as acute or chronic (principal); R05 Cough; R50.9 Fever, unspecified; H92.01 Otalgia, right ear; J02.9 Acute pharyngitis, unspecified; R51 Headache
CPT/HCPCS: 94640; 99284; 71046; J3490; J7620

== ENCOUNTER 2019-02-01 16:25 | Emergency (ER) | payer OTHER ==
[2019-02-01] MEDS ORDERED: ONDANSETRON 4 MG TAB.RAPDIS PO ONE (18:04)
--- NOTE | 2019-02-01 18:05 | ER Document Report ---
ED Medical Screen (RME) - General Chief Complaint: Nausea Stated Complaint: RIGHT SIDE PAIN/NAUSEA Time Seen by Provider: 02/01/19 18:01 Primary Care Provider: JOSY BILLY MD [Primary Care Provider] - Follow up as needed Mode of Arrival: Ambulatory Information source: Patient Notes: Patient presents complaining of right lateral side pain off and on for the past 2 weeks. Patient states pain is presently gone. Patient does report nausea. No vomiting or diarrhea. No urinary symptoms. Patient does report fever today of 101. I have greeted and performed a rapid initial assessment of this patient. A comprehensive ED assessment and evaluation of the patient, analysis of test results and completion of the medical decision making process will be conducted by additional ED providers. TRAVEL OUTSIDE OF THE [place] IN LAST 30 DAYS: No - Related Data Allergies/Adverse Reactions: morphine [Morphine] Adverse Reaction (Verified 02/01/19 17:58) "feels funny" Past Medical History Pulmonary Medical History: Reports: Hx Bronchitis Renal/ Medical History: Denies: Hx Peritoneal Dialysis - Immunizations Immunizations up to date: Yes Hx Diphtheria, Pertussis, Tetanus Vaccination: Yes Physical Exam - Vital signs Vitals: Temp Pulse Resp BP Pulse Ox 99.1 F 85 18 152/89 H 100 02/01/19 17:06 02/01/19 17:06 02/01/19 17:06 02/01/19 17:06 02/01/19 17:06 - General General appearance: Appears well, Alert In distress: None Notes: No CVA tenderness, no right upper quadrant tenderness Course - Vital Signs Vital signs: Temp Pulse Resp BP Pulse Ox 99.1 F 85 18 152/89 H 100 02/01/19 17:06 02/01/19 17:06 02/01/19 17:06 02/01/19 17:06 02/01/19 17:06 Doctor's Discharge - Discharge Referrals: JOSY BILLY MD [Primary Care Provider] - Follow up as needed
[2019-02-01 18:50] LABS: ABSOLUTE EOSINOPHILS # (AUTO) 0.2 10^3/uL (0.0-0.6); ABSOLUTE LYMPHOCYTES (AUTO) 3.1 10^3/uL (0.5-4.7); ABSOLUTE MONOCYTES (AUTO) 0.6 10^3/uL (0.1-1.4); ABSOLUTE NEUT (AUTO) 5.9 10^3/uL (1.7-8.2); BASOPHILS % (AUTO) 0.4 % (0-2); EOSINOPHILS % (AUTO) 2.3 % (0-6); HEMATOCRIT 30.3 % (36.0-47.0); HEMOGLOBIN 9.4 g/dL (12.0-15.5); LYMPHOCYTES % (AUTO) 31.7 % (13-45); MEAN CORPUSCULAR HEMOGLOBIN 19.4 pg (27.0-33.4); MEAN CORPUSCULAR HGB CONC 30.9 g/dL (32.0-36.0); MONOCYTES % (AUTO) 5.8 % (3-13); PLATELET COUNT 370 10^3/uL (150-450); RED BLOOD COUNT 4.81 10^6/uL (3.72-5.28); RED CELL DISTRIBUTION WIDTH 21.8 % (11.5-14.0); SEGMENTED NEUTROPHILS % (AUTO) 59.8 % (42-78); TOTAL CELLS COUNTED % (AUTO) 100 %; WHITE BLOOD COUNT 9.9 10^3/uL (4.0-10.5)
[2019-02-01 18:54] LABS: APPEARANCE,URINE SLIGHTLY-CLOUDY; BILIRUBIN,URINE NEGATIVE (NEGATIVE); COLOR,URINE YELLOW; GLUCOSE, URINE NEGATIVE (NEGATIVE); KETONES,URINE NEGATIVE (NEGATIVE); LEUKOCYTE ESTERASE,URINE LARGE (NEGATIVE); NITRITE,URINE NEGATIVE (NEGATIVE); PROTEIN,URINE NEGATIVE (NEGATIVE); URINE SPECIFIC GRAVITY 1.027
[2019-02-01 19:01] LABS: MEAN CORPUSCULAR VOLUME 63 fl (80-97)
[2019-02-01 19:07] LABS: ALBUMIN 4.2 g/dL (3.5-5.0); ALKALINE PHOSPHATASE 57 U/L (38-126); ANION GAP 12 (5-19); ASPARTATE AMINO TRANSFERASE 17 U/L (14-36); BILIRUBIN,DIRECT 0.1 mg/dL (0.0-0.4); BILIRUBIN,TOTAL 0.3 mg/dL (0.2-1.3); BLOOD UREA NITROGEN 13 mg/dL (7-20); CALCIUM 9.2 mg/dL (8.4-10.2); CARBON DIOXIDE 25 mmol/L (22-30); CHLORIDE 103 mmol/L (98-107); GLUCOSE 86 mg/dL (75-110); POTASSIUM 3.9 mmol/L (3.6-5.0)
[2019-02-01 19:23] LABS: ANISOCYTOSIS 3+; HYPOCHROMASIA SLIGHT; OVALOCYTES SLIGHT; TARGET CELLS SLIGHT
[2019-02-01 19:24] LABS: PLATELET COMMENT ADEQUATE
[2019-02-01] MEDS ORDERED: CEPHALEXIN 500 MG CAPSULE PO ONE (23:45)
--- NOTE | 2019-02-01 23:45 | ER Document Report ---
ED General - General Chief Complaint: Nausea Stated Complaint: RIGHT SIDE PAIN/NAUSEA Time Seen by Provider: 02/01/19 18:01 Primary Care Provider: JOSY BILLY MD [Primary Care Provider] - Follow up as needed Mode of Arrival: Ambulatory Notes: 43-year-old female presents with right flank pain, nausea, and cramping. Patient states this is intermittent for 2 weeks. Patient states she has had 3 episodes thus far. Currently has no pain. Patient states she had a similar episode approximately 6 years ago and was diagnosed with a urinary tract infection. Patient also has associated fever of 101F last night which was relieved with ibuprofen. Patient denies any hematuria, chills, vomiting, diarrhea, constipation, chest pain, shortness of breath. TRAVEL OUTSIDE OF THE [place] IN LAST 30 DAYS: No - Related Data Allergies/Adverse Reactions: morphine [Morphine] Adverse Reaction (Verified 02/01/19 17:58) "feels funny" Home Medications: Motrin Past Medical History - General Information source: Patient - Social History Smoking Status: Never Smoker Chew tobacco use (# tins/day): No Frequency of alcohol use: None Drug Abuse: None Family History: Reviewed & Not Pertinent Patient has suicidal ideation: No Patient has homicidal ideation: No Pulmonary Medical History: Reports: Hx Bronchitis Renal/ Medical History: Denies: Hx Peritoneal Dialysis - Immunizations Immunizations up to date: Yes Hx Diphtheria, Pertussis, Tetanus Vaccination: Yes Hx Pneumococcal Vaccination: 02/20/10 Review of Systems - Review of Systems Notes: Constitutional: Positive for fever. HENT: Negative for sore throat. Eyes: Negative for visual changes. Cardiovascular: Negative for chest pain. Respiratory: Negative for shortness of breath. Gastrointestinal: Positive for right flank pain and nausea. Negative for abdominal pain, vomiting or diarrhea. Genitourinary: Negative for dysuria. Musculoskeletal: Negative for back pain. Skin: Negative for rash. Neurological: Negative for headaches, weakness or numbness. 10 point ROS negative except as marked above and in HPI. Physical Exam - Vital signs Vitals: Temp Pulse Resp BP Pulse Ox 99.1 F 85 18 152/89 H 100 02/01/19 17:06 02/01/19 17:06 02/01/19 17:06 02/01/19 17:06 02/01/19 17:06 - Notes Notes: GENERAL: Well-appearing, well-nourished and in no acute distress. HEAD: Atraumatic, normocephalic. EYES: Pupils equal round and reactive to light, extraocular movements intact, sclera anicteric, conjunctiva are normal. NECK: Normal range of motion, supple without lymphadenopathy or JVD. LUNGS: Breath sounds clear to auscultation bilaterally and equal. No wheezes rales or rhonchi. HEART: Regular rate and rhythm without murmurs, rubs or gallops. ABDOMEN: Soft, nontender, no CVA tenderness.. No guarding, no rebound. No masses appreciated. EXTREMITIES: Normal range of motion, no pitting or edema. No clubbing or cyanosis. NEUROLOGICAL: Cranial nerves II through XII grossly intact. Normal speech, normal gait. PSYCH: Normal mood, normal affect. SKIN: Warm, Dry, normal turgor, no rashes or lesions noted. Course - Re-evaluation Re-evalutation: 02/01/19 43-year-old female presents with right flank pain, nausea, cramping with 3 episodes in the past 2 weeks. Patient is currently pain-free. Patient states similar episode 6 years ago when she was diagnosed with a UTI. Patient did have a fever of 101 of last night which was relieved with Motrin. Nontoxic, well appearing. Abd soft, nontender. No cva tenderness. Discussed work-up including CT abdomen/pelvis however at this time patient elected to not have CT completed. UA does show mild UTI. Due to flank pain and fever patient will be treated like it is pyelonephritis. Patient given 1 dose of Keflex here due to pharmacy being closed and prescription given. Strict return precautions given. Patient given close follow-up with PCP. Patient voices understanding and agrees with plan of care. - Vital Signs Vital signs: Temp Pulse Resp BP Pulse Ox 98.2 F 77 15 125/71 99 02/01/19 22:45 02/01/19 22:45 02/01/19 22:45 02/01/19 22:45 02/01/19 22:45 - Laboratory Result Diagrams: 02/01/19 18:20 02/01/19 18:20 Laboratory results interpreted by me: 02/01/19 02/01/19 18:20 18:20 Hgb 9.4 L Hct 30.3 L MCV 63 L MCH 19.4 L MCHC 30.9 L RDW 21.8 H Urine Blood MODERATE H Urine Urobilinogen 4.0 H Ur Leukocyte Esterase LARGE H Discharge - Discharge Clinical Impression: Pyelonephritis Condition: Stable Disposition: HOME, SELF-CARE Instructions: Pyelonephritis ([facility]) Additional Instructions: Please take Keflex as prescribed and finish all doses unless we call you to parra the antibiotic. Please follow-up with your primary care doctor in 3 to 5 days. Return immediately to ER if you start having any worsening symptoms, including fever, abdominal pain, vomiting, diarrhea/constipation, burning while peeing, blood in urine, or any other symptoms that are concerning to you. Prescriptions: Cephalexin Monohydrate [Keflex 500 mg Capsule] 500 mg PO Q6H 10 Days #39 capsule Referrals: JOSY BILLY MD [Primary Care Provider] - Follow up in 3-5 days
[2019-02-02 00:06] VITALS: BP 134/76
[2019-02-04 13:57] LABS: PATH REVIEW PATHOLOGIST REVIEWED
== END 2019-02-02 00:08 | disposition home or self-care (01) ==
LOC: ER 16:25
DX: N12 Tubulo-interstitial nephritis, not specified as acute or chronic (principal); R11.0 Nausea; R10.9 Unspecified abdominal pain; R50.9 Fever, unspecified
CPT/HCPCS: 99284; 36415; 83690; 84703; 85025; 80053; 81001; S0119

== ENCOUNTER 2019-02-19 14:14 | Emergency (ER) | payer OTHER ==
[2019-02-19 14:27] VITALS: BP 150/92
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
== END 2019-02-19 15:15 | disposition home or self-care (01) ==
LOC: ER 14:14
DX: M54.2 Cervicalgia (principal); M54.6 Pain in thoracic spine; M54.5 Low back pain; V87.7XXA Person injured in collision between other specified motor vehicles (traffic), initial encounter
CPT/HCPCS: 99283

== ENCOUNTER 2019-02-21 19:00 | Observation (INO) | payer OTHER ==
[2019-02-21] MEDS ORDERED: KETOROLAC TROMETHAMINE INJ/PF 30 MG/1 ML SDV IV ONE (20:11)
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
[2019-02-21 21:01] LABS: ABSOLUTE MONOCYTES (AUTO) 0.5 10^3/uL (0.1-1.4); ABSOLUTE NEUT (AUTO) 9.4 10^3/uL (1.7-8.2); BASOPHILS % (AUTO) 0.3 % (0-2); EOSINOPHILS % (AUTO) 0.2 % (0-6); HEMATOCRIT 32.2 % (36.0-47.0); LYMPHOCYTES % (AUTO) 16.6 % (13-45); MEAN CORPUSCULAR HEMOGLOBIN 19.2 pg (27.0-33.4); MEAN CORPUSCULAR VOLUME 62 fl (80-97); MONOCYTES % (AUTO) 4.1 % (3-13); PLATELET COUNT 368 10^3/uL (150-450); RED BLOOD COUNT 5.19 10^6/uL (3.72-5.28); RED CELL DISTRIBUTION WIDTH 21.5 % (11.5-14.0); SEGMENTED NEUTROPHILS % (AUTO) 78.8 % (42-78); TOTAL CELLS COUNTED % (AUTO) 100 %; WHITE BLOOD COUNT 11.9 10^3/uL (4.0-10.5)
[2019-02-21 21:16] LABS: ALBUMIN 4.4 g/dL (3.5-5.0); ALKALINE PHOSPHATASE 68 U/L (38-126); ANION GAP 12 (5-19); ASPARTATE AMINO TRANSFERASE 17 U/L (14-36); BILIRUBIN,DIRECT 0.3 mg/dL (0.0-0.4); BILIRUBIN,TOTAL 0.5 mg/dL (0.2-1.3); BLOOD UREA NITROGEN 12 mg/dL (7-20); CALCIUM 9.5 mg/dL (8.4-10.2); CARBON DIOXIDE 23 mmol/L (22-30); CHLORIDE 103 mmol/L (98-107); GLUCOSE 146 mg/dL (75-110); POTASSIUM 4.4 mmol/L (3.6-5.0); TOTAL PROTEIN 8.4 g/dL (6.3-8.2)
[2019-02-21 21:21] LABS: ANISOCYTOSIS 3+; HYPOCHROMASIA 1+; PLATELET COMMENT ADEQUATE
[2019-02-21] MEDS ORDERED: LORAZEPAM INJ 2 MG/1 ML VIAL IV ONE (21:32)
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
[2019-02-21 22:13] LABS: APPEARANCE,URINE SLIGHTLY-CLOUDY; BILIRUBIN,URINE NEGATIVE (NEGATIVE); COLOR,URINE YELLOW; GLUCOSE, URINE NEGATIVE (NEGATIVE); KETONES,URINE TRACE mg/dL (NEGATIVE); LEUKOCYTE ESTERASE,URINE NEGATIVE (NEGATIVE); NITRITE,URINE NEGATIVE (NEGATIVE); PROTEIN,URINE 30 mg/dL (NEGATIVE); URINE SPECIFIC GRAVITY 1.025
[2019-02-21] MEDS: FENTANYL CITRATE INJ/PF 100 MCG/2 ML AMPUL IV PRN (23:40)
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
[2019-02-22] MEDS ORDERED: NORMAL SALINE 1000 ML 1,000 ML IV ONE (00:44)
[2019-02-22] MEDS ORDERED: METOCLOPRAMIDE HCL INJ/PF 10 MG/2 ML SDV IV ONE (01:24)
--- NOTE | 2019-02-22 03:44 | RADIOLOGY REPORT (SQ) ---
US ABDOMEN LIMITED EXAM DATE: 02/22/2019 12:44 AM SUPERANNUATION FUNDS MANAGER HISTORY: Right upper quadrant pain. COMPARISON: None. TECHNIQUE: Grayscale and color Doppler imaging of the right upper quadrant was performed. FINDINGS: There is increased echogenicity of the hepatic parenchyma, likely representing hepatic steatosis. The main portal vein has normal hepatopetal flow. Multiple shadowing gallstones are seen. No pericholecystic fluid or gallbladder wall thickening. The common bile duct is normal caliber. The pancreas is not well-visualized due to overlying bowel gas. No hydronephrosis or shadowing renal stones are identified. The right kidney is normal in size. The visualized portions of the IVC and aorta are patent. IMPRESSION: Cholelithiasis without evidence of acute cholecystitis.
--- NOTE | 2019-02-22 03:48 | RADIOLOGY REPORT (SQ) ---
US PELVIS EXAM DATE: 02/22/2019 12:42 AM RUBBER GOODS INSPECTOR TESTER HISTORY: Right-sided pelvic pain. Evaluate for ovarian torsion. COMPARISON: 08/09/2017 TECHNIQUE: Grayscale, color Doppler, and spectral Doppler ultrasound images of the pelvis were obtained. FINDINGS: The uterus is enlarged and anteverted with a lobular contour, measuring 14.3 x 5.1 x 10.4 cm. Multiple fibroids are seen, with the largest measuring approximately 5 cm in the uterine fundus. The cervix is 3.9 cm in length. Nabothian cysts are seen in the cervix. The endometrium is 7 mm in thickness. The right and left ovaries were not visualized, due to bowel gas and body habitus. IMPRESSION: 1. Limited study due to large fibroid uterus, bowel gas, and body habitus. 2. Ovaries were not well visualized on this study. Consider cross-sectional imaging for complete evaluation, if clinically indicated.
[2019-02-22] MEDS: FENTANYL CITRATE INJ/PF 100 MCG/2 ML AMPUL IV PRN (06:07)
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
--- NOTE | 2019-02-22 08:38 | EKG REPORT ---
SEVERITY:- NORMAL ECG - SINUS RHYTHM : Confirmed by: Severiano Burks MD 22-Feb-2019 08:37:18
[2019-02-22] MEDS ORDERED: NORMAL SALINE 1000 ML 1,000 ML IV PRN (10:20)
[2019-02-22] MEDS ORDERED: PROMETHAZINE HCL INJ 25 MG/1 ML VIAL IV PRN (11:02)
[2019-02-22] MEDS: IBUPROFEN 800 MG TABLET PO SCH ×3 (11:09→21:15)
[2019-02-22] MEDS: HYDROMORPHONE HCL 2 MG TABLET PO SCH ×3 (11:10→21:17)
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
[2019-02-22 14:32] LABS: ABSOLUTE LYMPHOCYTES (AUTO) 2.1 10^3/uL (0.5-4.7); ABSOLUTE MONOCYTES (AUTO) 0.8 10^3/uL (0.1-1.4); BASOPHILS % (AUTO) 0.1 % (0-2); EOSINOPHILS % (AUTO) 0.1 % (0-6); HEMATOCRIT 30.2 % (36.0-47.0); HEMOGLOBIN 9.6 g/dL (12.0-15.5); LYMPHOCYTES % (AUTO) 19.5 % (13-45); MEAN CORPUSCULAR HEMOGLOBIN 19.7 pg (27.0-33.4); MEAN CORPUSCULAR HGB CONC 31.9 g/dL (32.0-36.0); MEAN CORPUSCULAR VOLUME 62 fl (80-97); MONOCYTES % (AUTO) 6.9 % (3-13); PLATELET COUNT 323 10^3/uL (150-450); RED CELL DISTRIBUTION WIDTH 21.4 % (11.5-14.0); SEGMENTED NEUTROPHILS % (AUTO) 73.4 % (42-78); TOTAL CELLS COUNTED % (AUTO) 100 %; WHITE BLOOD COUNT 10.9 10^3/uL (4.0-10.5)
[2019-02-22 14:44] LABS: POTASSIUM 4.1 mmol/L (3.6-5.0)
[2019-02-22 14:57] LABS: ANISOCYTOSIS 3+; PLATELET COMMENT ADEQUATE
[2019-02-22 14:58] LABS: HYPOCHROMASIA SLIGHT
[2019-02-22] MEDS ORDERED: HYDROMORPHONE HCL 2 MG TABLET PO PRN (22:00)
[2019-02-23 06:51] LABS: ABSOLUTE EOSINOPHILS # (AUTO) 0.2 10^3/uL (0.0-0.6); ABSOLUTE LYMPHOCYTES (AUTO) 2.4 10^3/uL (0.5-4.7); ABSOLUTE MONOCYTES (AUTO) 0.6 10^3/uL (0.1-1.4); ABSOLUTE NEUT (AUTO) 5.3 10^3/uL (1.7-8.2); BASOPHILS % (AUTO) 0.5 % (0-2); EOSINOPHILS % (AUTO) 2.2 % (0-6); HEMATOCRIT 27.6 % (36.0-47.0); HEMOGLOBIN 8.8 g/dL (12.0-15.5); LYMPHOCYTES % (AUTO) 27.7 % (13-45); MEAN CORPUSCULAR HEMOGLOBIN 19.8 pg (27.0-33.4); MEAN CORPUSCULAR HGB CONC 32.1 g/dL (32.0-36.0); MONOCYTES % (AUTO) 7.5 % (3-13); PLATELET COUNT 297 10^3/uL (150-450); RED BLOOD COUNT 4.47 10^6/uL (3.72-5.28); RED CELL DISTRIBUTION WIDTH 21.2 % (11.5-14.0); SEGMENTED NEUTROPHILS % (AUTO) 62.1 % (42-78); TOTAL CELLS COUNTED % (AUTO) 100 %; WHITE BLOOD COUNT 8.6 10^3/uL (4.0-10.5)
[2019-02-23] MEDS: IBUPROFEN 800 MG TABLET PO SCH ×2 (07:42→17:31)
[2019-02-23 07:46] LABS: ANISOCYTOSIS 3+; HYPOCHROMASIA 3+; OVALOCYTES 1+; PLATELET COMMENT ADEQUATE; POIKILOCYTOSIS 1+; POLYCHROMASIA SLIGHT
[2019-02-23 07:50] LABS: MEAN CORPUSCULAR VOLUME 62 fl (80-97)
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
[2019-02-23 11:41] VITALS: BP 124/68
[2019-02-23 14:54] LABS: ABSOLUTE EOSINOPHILS # (AUTO) 0.2 10^3/uL (0.0-0.6); ABSOLUTE LYMPHOCYTES (AUTO) 2.5 10^3/uL (0.5-4.7); ABSOLUTE MONOCYTES (AUTO) 0.8 10^3/uL (0.1-1.4); ABSOLUTE NEUT (AUTO) 7.3 10^3/uL (1.7-8.2); BASOPHILS % (AUTO) 0.4 % (0-2); EOSINOPHILS % (AUTO) 1.6 % (0-6); HEMATOCRIT 28.7 % (36.0-47.0); HEMOGLOBIN 9.1 g/dL (12.0-15.5); MEAN CORPUSCULAR HEMOGLOBIN 19.7 pg (27.0-33.4); MEAN CORPUSCULAR HGB CONC 31.8 g/dL (32.0-36.0); MEAN CORPUSCULAR VOLUME 62 fl (80-97); MONOCYTES % (AUTO) 7.7 % (3-13); PLATELET COUNT 296 10^3/uL (150-450); RED BLOOD COUNT 4.63 10^6/uL (3.72-5.28); SEGMENTED NEUTROPHILS % (AUTO) 67.3 % (42-78); TOTAL CELLS COUNTED % (AUTO) 100 %; WHITE BLOOD COUNT 10.8 10^3/uL (4.0-10.5)
[2019-02-23 14:58] LABS: ALBUMIN 3.9 g/dL (3.5-5.0); ALKALINE PHOSPHATASE 60 U/L (38-126); ANION GAP 9 (5-19); ASPARTATE AMINO TRANSFERASE 18 U/L (14-36); BILIRUBIN,DIRECT 0.3 mg/dL (0.0-0.4); BILIRUBIN,TOTAL 0.5 mg/dL (0.2-1.3); BLOOD UREA NITROGEN 10 mg/dL (7-20); CALCIUM 8.6 mg/dL (8.4-10.2); CARBON DIOXIDE 25 mmol/L (22-30); CHLORIDE 106 mmol/L (98-107); GLUCOSE 97 mg/dL (75-110); POTASSIUM 3.5 mmol/L (3.6-5.0); TOTAL PROTEIN 7.9 g/dL (6.3-8.2)
[2019-02-23 15:24] LABS: ANISOCYTOSIS 3+; HYPOCHROMASIA 3+; OVALOCYTES 1+; PLATELET COMMENT ADEQUATE; POIKILOCYTOSIS 1+; POLYCHROMASIA SLIGHT
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
[2019-02-25 09:42] LABS: PATH REVIEW PATHOLOGIST REVIEWED
== END 2019-02-23 15:45 | disposition short-term general hospital (02) ==
LOC: ER 19:00 → EH 02-22 10:35 → 2N 02-22 11:58
PROVIDERS: ADMIT Specialist; ATTEND Specialist
DX: S39.011A Strain of muscle, fascia and tendon of abdomen, initial encounter (principal); S39.012A Strain of muscle, fascia and tendon of lower back, initial encounter; V49.49XA Driver injured in collision with other motor vehicles in traffic accident, initial encounter; D25.1 Intramural leiomyoma of uterus; N83.8 Other noninflammatory disorders of ovary, fallopian tube and broad ligament; E66.01 Morbid (severe) obesity due to excess calories; R10.31 Right lower quadrant pain; K80.20 Calculus of gallbladder without cholecystitis without obstruction; N83.209 Unspecified ovarian cyst, unspecified side; R30.0 Dysuria; R06.4 Hyperventilation; R00.0 Tachycardia, unspecified; R25.1 Tremor, unspecified; D36.9 Benign neoplasm, unspecified site; R40.2412 Glasgow coma scale score 13-15, at arrival to emergency department; Z79.899 Other long term (current) drug therapy; Z79.1 Long term (current) use of non-steroidal anti-inflammatories (NSAID)
CPT/HCPCS: 93005; 99285; 96361; 51701; 96374; 96375; 86900; 86901; 36415 ×3; 86850; 86304; 80051; 84703; 85025 ×3; 80053 ×2; 81001; 74018; 76705; 76830; 74177; 93010; G0378 ×3; J3010 ×2; J1885; J2765; J2060; J2550; J7030

== ENCOUNTER 2019-12-19 07:58 | Outpatient (CLI) | payer OTHER, MEDICAID ==
[2019-12-19] MEDS ORDERED: IRON DEXTRAN COMPLEX 25 MG in NORMAL SALINE 100 ML IV PRN ×2 (08:07→08:30)
[2019-12-19] MEDS ORDERED: IRON DEXTRAN COMPLEX 775 MG in NORMAL SALINE 500 ML IV PRN (08:08)
[2019-12-19] MEDS ORDERED: NORMAL SALINE 250 ML IV PRN (08:09)
[2019-12-19] MEDS ORDERED: IRON DEXTRAN COMPLEX 25 MG in SYRINGE, DISPOSABLE, 1 EACH IV PRN (08:22)
[2019-12-19 08:50] VITALS: BP 127/83
[2019-12-19] MEDS ORDERED: DEXAMETHASONE SOD PHOSPHATE INJ 4 MG/1 ML VIAL ONE (10:08)
[2019-12-19] MEDS ORDERED: DIPHENHYDRAMINE HCL 50 MG/ML VIAL ONE (10:09)
[2019-12-19] MEDS ORDERED: ACETAMINOPHEN 325 MG TABLET ONE (10:09)
[2019-12-19] MEDS ORDERED: DEXAMETHASONE SOD PHOS INJ 10 MG/1 ML VIAL IV ONE (10:30)
[2019-12-19] MEDS ORDERED: DIPHENHYDRAMINE HCL 50 MG/ML VIAL IV ONE (10:30)
[2019-12-19] MEDS ORDERED: ACETAMINOPHEN 325 MG TABLET PO ONE (10:30)
== END 2019-12-19 14:01 | disposition home or self-care (01) ==
LOC: II 07:58 → 5TH 08:01 → II 14:01
PROVIDERS: ATTEND Internal Medicine
DX: D50.8 Other iron deficiency anemias (principal); K90.9 Intestinal malabsorption, unspecified
CPT/HCPCS: 96365; 96366; 96375; J1100; J1200; J1750; J7050; J7040; J3490

== ENCOUNTER 2019-12-26 08:00 | Outpatient (CLI) | payer OTHER, MEDICAID ==
[~2019-12-26 08:00] MED LIST changes: -ACETAMINOPHEN 325 MG TABLET ONE; +ACETAMINOPHEN 325 MG TABLET PO PRN; +DEXAMETHASONE 10 MG in NS 50 ML IV PRN; +DIPHENHYDRAMINE 50 MG in NS 50 ML IV PRN; -DIPHENHYDRAMINE HCL 25 MG CAPSULE ONE; +IRON DEXTRAN COMPLEX 800 MG in NORMAL SALINE 500 ML IV PRN; +NORMAL SALINE 250 ML @ KVO IV PRN
[2019-12-26 08:35] VITALS: BP 129/91
== END 2019-12-26 14:13 | disposition home or self-care (01) ==
LOC: II 08:00 → 5TH 08:02 → II 14:13
PROVIDERS: ATTEND Internal Medicine
DX: D50.8 Other iron deficiency anemias (principal); K90.9 Intestinal malabsorption, unspecified
CPT/HCPCS: 96365; 96366; 96367; J1200; J1750; J7040; J1100